=== PATIENT | male | born 1975 | race African-American/Black ===

== ENCOUNTER 2016-11-22 00:30 | Emergency (ER) | payer MEDICAID ==
--- NOTE | 2016-11-22 00:38 | EDPHY ---
H & P HPI/ROS: Chief complaint: Medical clearance for skilled nursing History of present illness: This is a 41-year-old male brought to the emergency department by EMS and the police for medical clearance to be taken to skilled nursing. Just prior to arrival patient was apprehended by the police, during this he was tazed twice and Mace was sprayed at him. 3 Taser barbs have been removed by the police, they cannot locate a 4th. Patient is very upset, he does not want to be here. He states he feels fine with no complaints. Review of systems: Patient will not answer review of system questions (Bart Torres) - Physical Exam Exam: General Appearance: Alert, very upset. Eyes: PERRLA. Patient is tearing. ENT, Mouth: Mucous membranes moist. Respiratory: There are no retractions, lungs are clear to auscultation. Cardiovascular: Regular rate and rhythm. Gastrointestinal: Abdomen is soft and nontender, no masses, bowel sounds normal. Neurological: Alert. Strength and sensation intact and symmetrical. Skin: Warm and dry, no rashes. A head-to-toe examination does not reveal a 4th Taser kyree Musculoskeletal: Neck is supple nontender. Extremities are symmetrical, full range of motion. Psychiatric: Patient is extremely agitated (Bart Torres) Constitutional: Initial Vital Signs Temperature (C) 37.0 C 11/22/16 00:30 Heart Rate 108 H 11/22/16 00:30 Respiratory Rate 18 11/22/16 00:30 Blood Pressure 123/91 H 11/22/16 00:30 O2 Sat (%) 98 11/22/16 00:30 O2 Delivery Mode Room Air Allergies/Adverse Reactions: No Known Allergies Allergy (Unverified 11/22/16 00:52) Home Medications: Medication Instructions Recorded NK [No Known Home Meds] 11/22/16 Medical Decision Making ED Course/Re-evaluation: Patient seen under the supervision of my secondary supervising physician Dr. Marylu Corado. Patient presents to the emergency department with EMS and police for clearance to go to skilled nursing. He is extremely agitated. He has no complaints. A head-to-toe examination does not reveal a Taser kyree. His eyes have been irrigated. No further complaints are ascertain. He is discharged with EMS and police to skilled nursing. (Bart Torres) Other Provider: PHYSICIAN DOCUMENTATION: The patient was evaluated and managed by the Physician Outsole Molder. My co- signature indicates that I have reviewed this chart and I agree with the findings and plan of care as documented. I am the secondary supervising physician. (Marylu Corado) Departure - Departure Disposition: Other Psych, Not [place] Clinical Impression: Medical clearance for incarceration Condition: Good Instructions: Alcohol Intoxication (ED) Additional Instructions: Patient is medically cleared to go to skilled nursing Patient should follow up with a primary care doctor for recheck this week Referrals: Patient,NotPresent [Primary Care Provider] - As per Instructions [facility],. [Clinic] - As per Instructions
[2016-11-22 01:01] VITALS: BP 123/91; RESP 18; TEMP 98.6
[2016-11-22 01:04] VITALS: PULSE 110; O2SAT 99
== END 2016-11-22 01:10 ==
DX: Z02.89 Encounter for other administrative examinations (principal)

== ENCOUNTER 2018-07-26 16:31 | Emergency (ER) | payer MEDICAID ==
[2018-07-26 16:52] VITALS: BP 144/88
--- NOTE | 2018-07-26 17:53 | EDPHY ---
General Time Seen by Provider: 07/26/18 17:52 Narrative: CLINICAL IMPRESSION: URI, cough ASSESSMENT/PLAN: Patient is a 43-year-old male with no significant medical history presents to the emergency department with runny nose, congestion and cough that has been ongoing for 2 weeks. Patient is afebrile, in no acute distress and nontoxic appearing. His vital signs were reviewed and no findings to suggest sepsis or serious bacterial illness. His lungs revealed faint expiratory wheeze, oxygen saturation was 96% on room air. CXR with no evidence of pneumonia or consolidation. History and physical examination is most consistent with upper respiratory infection and cough, likely viral in nature. There is no evidence of significant sinusitis, meningitis, pneumonia or serious bacterial illness. Symptoms have been ongoing for 2 weeks, did not feel beneficial to test for influenza as I would not treat with Tamiflu at this point. The patient was given albuterol neb with improvement of his symptoms. The patient will continue to be treated symptomatically and is instructed to followup with PCP for reevaluation within the next 2-3 days. On re-examination prior to discharge this patient is stable and well-appearing, his oxygen saturation remained above 95% without evidence of hypoxia or respiratory distress. The patient is is well established with PCP at [facility], we discussed the importance of close follow-up. Strict return precautions discussed- the patient will return for significantly worsening symptoms, high fevers, neck stiffness, difficulty swallowing, chest pain, shortness of breath, signs of dehydration or for any other concerning symptom. The patient verbalizes understanding and he is in agreement with this plan. DIFFERENTIAL DX: Differential diagnosis including but not limited to and in no particular order meningitis, pneumonia, asthma exacerbation, influenza, sepsis, URI ED COURSE: 1845: On repeat examination and prior to discharge the patient reports that he is feeling much better after the albuterol nebulizer. His lungs were clear to auscultation, there was no evidence of respiratory distress. CHIEF COMPLAINT: Runny nose, congestion, cough HPI: Patient is a 43-year-old male with no significant medical history who presents to the emergency department with runny nose, congestion and cough. 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 Feels that his cough is not getting better. His ears have felt warm at times however he denies any fever or chills. His appetite has been normal. He denies any ear pain. He denies any severe sore throat, hoarseness, change in voice or difficulty swallowing. He has had no chest pain or shortness of breath. His cough is productive, thick green in nature. He has no history of asthma or lung disease. He is a nonsmoker. He denies any abdominal pain, nausea or vomiting. PMH: Denies Family History: Noncontributory Social History: Denies cigarette smoking, denies illicit drug use, occasional alcohol REVIEW OF SYSTEMS: All other systems negative Constitutional: No fever, no chills, appetite change. Eyes: No discharge, vision change ENT: Runny nose, congestion, sore throat. Denies ear pain. Cardiovascular: No chest pain, no palpitations. Respiratory: Cough. No shortness of breath. Gastrointestinal: No abdominal pain, no vomiting, diarrhea. Genitourinary: No hematuria, dysuria, flank pain. Musculoskeletal: No back pain, joint swelling, joint pain, myalgias. Skin: No rashes, color change. Neurological: No headache, dizziness, weakness. PHYSICAL EXAM: General Appearance: Well-developed, talking on his phone in no acute distress. HENT: Normocephalic, atraumatic. Bilateral external ears are normal. Bilateral tympanic membranes are normal with pearly correa reflex. Nares are clear, mucosa is pink. Oropharynx is clear, uvula is midline. There is no tonsillar enlargement or exudate. His phonation is normal, there is no trismus. The dentition is normal. Eyes: PERRLA, no acute vision change, nystagmus, swelling, discharge, pain or photosensitivity. Conjunctiva pink, no pallor or injection Neck: Supple, nontender, no lymphadenopathy, no midline pain, FROM, no meningismus. There is no stridor. Respiratory: There are no retractions, faint expiratory wheeze globally. Cardiac: Regular rate and rhythm, no murmurs or gallops. Gastrointestinal: Abdomen is soft, nontender, bowel sounds normal, no masses/ hernia, no rigidity, guarding or focal peritoneal findings. Neurological: Alert and oriented x 3, CN 2-12 grossly intact, normal gait no ataxia, DTR's intact, normal sensation and strength Skin: Warm, dry, no rashes, no nodules on palpation. Musculoskeletal: Extremities are symmetrical, full range of motion, no tenderness, deformity, swelling, or erythema. Psychiatric: Patient is oriented X 3, there is no agitation. MEDICAL DECISION MAKING: Patient was seen independently. Secondary supervising physician at time of evaluation was Dr. Dominique, she did not evaluate this patient. Diagnosis: URI, cough. New, requires workup Summary: See Assessment and Plan for summary of ED visit Clinical lab tests: ordered / reviewed. Independent visualization of images, tracing, or specimens: Yes. Decision to obtain medical records or history from someone other than the patient: No Review / Summarize previous medical records: Yes Discussed patient with another provider: No Patient Progress: Stable, discharged. - Diagnostics Imaging Results: Imaging Impressions Chest X-Ray 07/26/18 17:59 Impression: No acute findings in the chest. - History Smoking Status: Never smoked - Objective Vital Signs: Initial Vital Signs Temperature (C) 36.9 C 07/26/18 16:50 Heart Rate 84 07/26/18 16:50 Respiratory Rate 18 07/26/18 16:50 Blood Pressure 144/88 H 07/26/18 16:50 O2 Sat (%) 96 07/26/18 16:50 O2 Delivery Mode Room Air Allergies/Adverse Reactions: No Known Allergies Allergy (Verified 07/26/18 16:50) Home Medications: Medication Instructions Recorded Albuterol [Proventil Inhaler HFA 1 - 2 puffs IH Q4H #1 mdi 07/26/18 (*)] Medications Given: Discontinued Medications Albuterol (Proventil Neb) 3 ml IH EDNOW ONE Stop: 07/26/18 18:00 Last Admin: 07/26/18 18:03 Dose: 3 ml Departure - Departure Disposition: Home, Routine, Self-Care Clinical Impression: URI with cough and congestion Condition: Good Instructions: Upper Respiratory Infection (ED) Additional Instructions: DISCHARGE INSTRUCTIONS FROM YOUR DOCTOR Thank you for visiting our emergency department today. Please keep in mind that discharge from the emergency department does not mean that there is nothing wrong - it simply means that we have not identified an emergency condition that requires further evaluation or treatment in the hospital. You should always plan to follow up with primary care for re-evaluation of your condition in the next 2-3 days. Rest, push non-diuretic, non-caffeinated fluids, consume a healthy diet, all to help support your immune system fight infection. Consider running a coolmist humidifier in the bedroom. Consider warm salt water gargles for sore throat. Consider over the counter saline nasal washes ie: Neilmed sinus rinse, [place] or [place]. Consider over the counter Mucinex for congestion and/or cough as directed. Albuterol inhaler as needed for cough and wheezing. For pain control: You may take Tylenol, I recommend 500-1000 mg every 6-8 hours as needed. Take with food and a full glass of water. Stop taking if this is upsetting her stomach. Do not exceed 4000 mg in a 24 hr period. You may also take ibuprofen, recommend 400 mg every 6 hr. Take with food and a full glass of water. Stop taking if this upsets her stomach. Do not exceed 2400 mg in a 24 hr period. As discussed, in the setting of a viral illness, you may develop a secondary bacterial infection, requiring an antibiotic. Watch for new or changing symptoms ie: new ear pain or drainage, increasing cough, shortness of breath, high fever, or any other concerning symptoms. Schedule a follow-up appointment with your primary care physician in the next 2- 3 days for re-evaluation, sooner for any new concerns. Return for high fever, shaking chills, severe headache, facial redness or swelling, drainage from your ears, difficulty breathing or swallowing, throat tightness, drooling, change in voice, inability to open your mouth normally, severe neck pain, neck stiffness, shortness of breath, wheezing, noisy breathing , coughing up blood, chest pain, vomiting, diarrhea, bloody stools, decreased urine output or other concerns for dehydration, bloody urine, rash, dizziness, weakness, fainting, or for any other new, worsening or worrisome symptoms. People present with illnesses and injuries in different ways, and it is always possible that we have missed something. You may always return for re-evaluation if symptoms worsen or if they are not improving or if you develop new/different symptoms. Again, thank you for choosing our emergency department. We hope that you feel better. Referrals: [facility],. [Clinic] - 2-3 days, call for appt. Prescriptions: Albuterol [Proventil Inhaler HFA (*)] 1 - 2 puffs IH Q4H #1 mdi
[2018-07-26] MEDS ORDERED: ALBUTEROL 3 ML DEYVIAL IH ONE (17:59)
[2018-07-26] MEDS ORDERED: ALBUTEROL 60 PUFFS/8 GM MDI IH PRN (18:46)
[2018-07-26] MEDS ORDERED: ALBUTEROL INH PREPACK MDI TAKEHOME ONE (18:49)
== END 2018-07-26 18:59 | disposition home or self-care (01) ==
DX: J06.9 Acute upper respiratory infection, unspecified (principal)
CPT/HCPCS: J7613